=== PATIENT | female | born 1950 | race African-American/Black ===

== ENCOUNTER 2019-06-26 16:54 | Inpatient (IN) ==
[2019-06-26] MEDS ORDERED: DUONEB (A & A) INH ONE (18:39)
[2019-06-26] MEDS ORDERED: SOLU-MEDROL IV ONE (18:39)
[2019-06-26 19:38] LABS: BASO# 0.03 X1000 (0.0-0.2); BASO% 0.5 % (0.0-0.8); EOS# 0.12 X1000 (0.0-0.7); EOS% 2.2 % (0.0-10.0); HEMATOCRIT 38.1 % (37.0-47.0); HEMOGLOBIN 12.1 g/dL (12.0-16.0); IMM GRAN# 0.02 X1000 (0.0-0.04); IMM GRAN% 0.4 % (0.0-0.5); LYMPH# 1.37 X1000 (1.2-3.4); LYMPH% 24.8 % (20.5-51.1); MCH 23.5 PG (27-31); MCHC 31.8 g/dL (33-37); MONO# 0.48 X1000 (0.11-0.59); MONO% 8.7 % (1.7-9.3); MPV 9.6 FL (7.4-10.4); NEUT% 63.4 % (42.2-75.2); PLT 265 X1000 (130-400); RBC 5.15 XMIL (4.2-5.4); RDW 17.7 % (11.5-14.5); WBC 5.52 X1000 (4.8-10.8)
[2019-06-26] MEDS ORDERED: ALBUTEROL NEB INH ONE (20:01)
[2019-06-26] MEDS ORDERED: CARDIZEM IV ONE ×2 (20:03→22:18)
[2019-06-26 20:09] LABS: ALB/GLOB RATIO 0.8; ALBUMIN 3.4 g/dL (3.5-5.0); CALCIUM 10.1 mg/dL (8.8-10.2); CREATININE 1.5 mg/dL (0.5-0.9); POTASSIUM 4.8 mmol/L (3.5-5.1); TOTAL BILIRUBIN 0.59 mg/dL (0.20-1.00); TOTAL PROTEIN 7.6 g/dL (6.3-8.3)
[2019-06-26] MEDS ORDERED: LASIX IV ONE ×2 (21:21→22:18)
[2019-06-26] MEDS ORDERED: BENADRYL IV ONE (22:51)
[2019-06-26] MEDS ORDERED: LANTUS INSULIN SUBQ ONE (23:28)
[2019-06-26] MEDS ORDERED: ALDACTONE PO ONE (23:28)
[2019-06-26] MEDS ORDERED: TYLENOL PO PRN (23:28)
[2019-06-26] MEDS ORDERED: ZOFRAN IV PRN (23:28)
[2019-06-26] MEDS ORDERED: LASIX 100 MG in NS 90 ML IV SCH (23:30)
[2019-06-26] MEDS ORDERED: NITROGLYCERIN TOP SCH (23:30)
--- NOTE | 2019-06-26 23:42 | EKG Report ---
Test Performed on : 06/26/2019 5:00:07 PM Test Reason : SOB Blood Pressure : / mmHG Vent. Rate : 108 BPM Atrial Rate : 108 BPM P-R Int : 144 ms QRS Dur : 086 ms QT Int : 336 ms P-R-T Axes : 044 023 102 degrees QTc Int : 450 ms Sinus tachycardia. Nonspecific T wave abnormality Abnormal ECG When compared with ECG of 29-SEP-2018 00:15, premature ventricular complexes. are no longer present Nonspecific T wave abnormality has replaced inverted T waves in Lateral leads Confirmed by Yuli PONCE, [place] ([id number]) on 06/27/2019 8:19:14 AM
[2019-06-26] MEDS: DUONEB (A & A) INH SCH (23:50)
--- NOTE | 2019-06-27 01:08 | HISTORY AND PHYSICAL ---
REASON FOR ADMISSION: Two-day history of shortness of breath. HISTORY OF PRESENT ILLNESS: Ms. Reina Perez is a 68-year-old, woman with past medical history of type 2 diabetes, allergic rhinitis, prior DVT and PE, status post IVC filter, on chronic anticoagulation. Prior right breast cancer, status post lumpectomy, hypertension, hyperlipidemia, and chronic venous insufficiency with diabetic neuropathy. She comes in today complaining of sudden shortness of breath for the last 2 days, which was preceded by 2 days of mild, but slowly worsening dyspnea. States that for the last 2 days, she is unable to lay flat on her back and has been waking up at night gasping for breath intermittently. Also, admits to having chronic lower extremity leg swelling, which is worse at the end of the day, but gets better during the mornings. No facial swelling. Admits to having an occasional dry cough. Came today because her breathing had gotten so bad at rest and noticed that she was having palpitations. She denies any chest pain. No extremity redness or pain. No fever or chills. REVIEW OF SYSTEMS: The patient has occasional diarrhea from metformin, but no bleeding from any orifice. No genitourinary complaints. During the course of her treatment with Cardizem in the ER, she developed a pruritic rash at the site of injection, which has improved with administration of Benadryl. Otherwise, review of systems, 12 system review was done, positive findings per HPI. No antecedent history of upper respiratory symptoms or use of herbal remedies, although history of compliance issues with her medications. ALLERGIES: Reglan, and now Cardizem. HOME MEDICATIONS: 1. Exenatide weekly injections. 2. Eliquis 5 mg b.i.d. 3. Metformin 850 mg t.i.d. 4. Lispro 50 units as needed. 5. Magnesium 20 mg daily. 6. Potassium chloride 10 mEq daily. 7. Toprol-XL 100 mg daily. 8. Atorvastatin 20 mg daily. 9. Norvasc 10 mg daily. SOCIAL HISTORY: . Does not smoke, drink, or use drugs. FAMILY HISTORY: Dad of stomach cancer. Mom had a heart attack and of a CVA. Other history of bone cancer, pancreatic cancer in first-degree relatives. SURGICAL HISTORY: IVC filter placement and a right hemicolectomy for a tubulovillous adenoma in 2016, hysterectomy, cholecystectomy, and tubal ligation, other surgeries. LAB WORK: Chest film is a poorly penetrated film, but does show increased vascular markings and possible small bilateral pleural effusions. The patient did not take a good deep inspiratory effort, thus limiting the quality of this film. White count 5000, hemoglobin nd hematocrit 12 and 38, MCV 70, RDW 17, platelet count 265,000. BUN is 17, creatinine 1.5, glucose 105. Troponin 0.028. ProBNP is 1800. D-dimer 1.37. Lactate 1.9. EKG not available for review. PHYSICAL EXAMINATION: VITAL SIGNS: Blood pressure is 180/112, heart rate is 106, respiratory rate 20, temperature is 98.4. She is 93% on 2 L nasal cannula. GENERAL: She is a pleasant, morbidly obese, woman in mild respiratory distress, using mild accessory muscles. She is alert and oriented to person, place, and time. HEENT: Head is normocephalic, atraumatic. Eyes: KYLER, EOMI. Anicteric are not pale. ENT: Oropharynx exam is grossly. No sinus cyanosis noted. NECK: Short and thick with mild hepatojugular reflux. No JVD visualized. No bruit or thyromegaly visualized. CHEST: Bibasilar crepitations heard. A few scattered wheezes. CARDIOVASCULAR: First and second heart sounds heard. No gallops, murmurs, rubs. Rhythm regular. ABDOMEN: Protuberant, soft with no focal areas of tenderness. No mass or organomegaly could be appreciated due to the patient's abdominal girth. Bowel sounds normal. RECTAL: Deferred at this time. EXTREMITIES: The patient has embolic stockings on, but despite I could feel 2+ pitting edema. Her distal pulse volumes in the upper extremities are 2+, regular, symmetrical. No clubbing or peripheral cyanosis noted. NEUROLOGICAL: No gross focal deficits. No tremors. SKIN: There is an area of urticaria in the left antecubital area where injections were given, it is mildly hyperemic and appears, according to the patient to be receding in size. MUSCULOSKELETAL: Exam is grossly normal. ASSESSMENT: 1. Acute congestive heart failure? type. 2. Hypertensive heart disease with heart failure. 3. Type 2 diabetes with neuropathy. 4. Hyperlipidemia. 5. History of deep venous thrombosis and pulmonary embolism. 6. Morbid obesity. 7. Chronic kidney disease stage 3. PLAN: The patient will undergo aggressive diuresis. She was given IV boluses in the ER. We will continue with Lasix drip over the next 36 hours. Repeat chest film in 24 hours from now to document improvement. Echocardiogram will be ordered. Cardiology will be consulted. Also, we will consult sleep specialist for sleep evaluation, as this patient is at risk for sleep apnea, which in turn can cause all the other problems downstream, i.e., uncontrolled hypertension and CHF. The patient does have some degree of microcytic anemia. Iron studies should be considered. Regarding the patient's type 2 diabetes, the patient will be on Lantus and sliding scale in the interim. Other supportive measures will include aggressive blood pressure control. I have started her on Aldactone pending echocardiogram. This will help her blood pressure and decreased potassium losses, and if the patient has systolic heart failure this will be part of her regimen. Nebulizer treatments also be instituted for symptomatic relief. The patient is already on Eliquis, and according to Wells criteria, her risk for PE is on the lower side since there is an alternative diagnosis for the patient's shortness of breath. However, if the patient continues to have symptoms despite optimal diuresis, CTA can be ordered, although I doubt this is the etiology of her symptoms. Her clinical picture is more consistent with heart failure, and the patient is on optimal doses of Eliquis and has an IVC filter, although the latter can be a source of future PEs and DVTs. cc: MD Mateo Saab MD [facility]
[2019-06-27 01:20] LABS: CREATININE 1.5 mg/dL (0.5-0.9); POTASSIUM 4.5 mmol/L (3.5-5.1)
[2019-06-27] MEDS: DUONEB (A & A) INH SCH ×4 (03:45→22:25)
[2019-06-27] MEDS ORDERED: HUMALOG SUBQ SCH (07:00)
--- NOTE | 2019-06-27 07:38 | Diag Imaging Result Doc PS360 ---
CHEST-1 VIEW - 06/26/2019 INDICATION: sob COMPARISON: 09/09/2017 FINDINGS: There is cardiomegaly. There is severe worsening pulmonary vascular congestion. There are some patchy central infiltrates bilaterally most likely pulmonary edema. No large pleural effusion. IMPRESSION: Congestive heart failure. Electronically signed by Henry Winston 06/27/2019 7:35 AM
[2019-06-27] MEDS ORDERED: NITROGLYCERIN TOP SCH (08:15)
[2019-06-27] MEDS: HUMALOG SUBQ SCH ×4 (08:26→20:41)
[2019-06-27] MEDS ORDERED: LASIX 100 MG in NS 90 ML IV SCH (08:30)
[2019-06-27] MEDS ORDERED: LASIX IV ONE (08:32)
[2019-06-27] MEDS ORDERED: TOPROL XL PO SCH (09:00)
[2019-06-27] MEDS ORDERED: NORVASC PO SCH (09:00)
[2019-06-27] MEDS ORDERED: ALDACTONE PO SCH (09:00)
[2019-06-27] MEDS ORDERED: LIPITOR PO SCH (09:00)
[2019-06-27] MEDS ORDERED: LANTUS INSULIN SUBQ SCH (09:00)
[2019-06-27] MEDS ORDERED: MAGNESIUM PO SCH (09:00)
[2019-06-27] MEDS ORDERED: KLOR-CON PO SCH (09:00)
[2019-06-27] MEDS ORDERED: ELIQUIS PO SCH (09:00)
[2019-06-27] MEDS: NORVASC PO SCH (09:28)
[2019-06-27] MEDS: LASIX IV SCH (09:28)
[2019-06-27] MEDS: TOPROL XL PO SCH (09:28)
[2019-06-27] MEDS: KLOR-CON PO SCH (09:28)
[2019-06-27] MEDS: ELIQUIS PO SCH ×2 (09:28→21:57)
[2019-06-27 09:37] LABS: HEMATOCRIT 35.5 % (37.0-47.0); HEMOGLOBIN 11.1 g/dL (12.0-16.0); IMM GRAN# 0.03 X1000 (0.0-0.04); IMM GRAN% 0.5 % (0.0-0.5); LYMPH# 1.02 X1000 (1.2-3.4); LYMPH% 15.4 % (20.5-51.1); MCH 23.2 PG (27-31); MCHC 31.3 g/dL (33-37); MCV 74.3 FL (81-99); MONO# 0.27 X1000 (0.11-0.59); MONO% 4.1 % (1.7-9.3); MPV 10.2 FL (7.4-10.4); PLT 283 X1000 (130-400); RBC 4.78 XMIL (4.2-5.4); RDW 17.5 % (11.5-14.5); WBC 6.62 X1000 (4.8-10.8)
[2019-06-27] MEDS ORDERED: NEURONTIN PO SCH (10:15)
[2019-06-27] MEDS: GLUCOPHAGE PO SCH ×3 (11:04→17:17)
[2019-06-27] MEDS ORDERED: MAGNESIUM SULFATE 2 GM/S.W.I. 2 GM/50 ML IVPB IV ONE (12:35)
--- NOTE | 2019-06-27 15:40 | ECHO REPORT ---
ORDER DATE: 06/26/2019 INTERPRETING PHYSICIAN: Dr. Derick Carr ECHOCARDIOGRAPHIC MEASUREMENTS: 1. Interventricular septum: 1.6 cm. 2. Left ventricular posterior wall: 1.6 cm. 3. Diastolic diameter: 5.1 cm. 4. Left atrium: 4.6 cm. 5. Aorta: 2.9 cm. SUMMARY OF THE 2-DIMENSIONAL IMAGIN. Aortic valve leaflets were trileaflet. 2. Pulmonic valve was normal. 3. There is trace pulmonary regurgitation. 4. There is left atrial enlargement. 5. Mitral valve was normal. 6. Tricuspid valve was normal. 7. There is mild mitral regurgitation. 8. Peak velocity across the tricuspid valve was 2.9 meters per second. 9. Pulmonary artery systolic pressure 44 mmHg. 10. There is mild tricuspid regurgitation. 11. Peak velocity across the aortic valve less than 2 meters per second. 12. By Doppler studies, there is no aortic stenosis or regurgitation. 13. Normal left ventricular cavity size. 14. Concentric left ventricular hypertrophy. 15. Estimated ejection fraction of 45%. 16. There is mild global hypokinesis. 17. There is a grade 2 diastolic dysfunction. 18. There is no pericardial effusion or obvious intracardiac mass or thrombus seen. cc: MD Rick Chowdhury MD Jagan Reddy, MD
[2019-06-27] MEDS: NEURONTIN PO SCH (17:29)
--- NOTE | 2019-06-27 18:32 | Diag Imaging Result Doc PS360 ---
CHEST-PORTABLE - 06/27/2019 INDICATION: CHF COMPARISON: 06/26/2019 FINDINGS: Stable cardiomegaly and pulmonary vascular congestion. Stable hazy central infiltrates consistent with mild pulmonary edema. No pleural effusions. IMPRESSION: No change from prior. Electronically signed by Henry Winston 06/27/2019 6:29 PM
--- NOTE | 2019-06-27 18:50 | CONSULTATION ---
DATE OF CONSULTATION: 06/27/2019 IMPRESSION: 1. Acute congestive heart failure. 2. Hypertensive cardiovascular disease. 3. Prior deep vein thrombosis and pulmonary embolus. Patient is status post inferior vena cava filter and continues on chronic anticoagulation. 4. Type 2 diabetes mellitus. 5. Obesity. 6. Obstructive sleep apnea. RECOMMENDATIONS: 1. Diurese with IV Lasix as you are doing. 2. Followup echocardiography. 3. Further recommendations to follow. HISTORY: This 68-year-old -[place] female with past history of obesity, hypertensive cardiovascular disease, type 2 diabetes mellitus and prior DVT/pulmonary embolus was admitted with progressive dyspnea and orthopnea over the last 72 hours. She is found to have evidence of congestive heart failure and has been diuresed. She reports feeling better. She relates starting to have orthopnea and some exertional shortness of breath about 72 hours ago. Yesterday evening her shortness of breath symptoms progressed prompting her to come to the hospital for evaluation after which she was admitted and diuresed. There has been no chest pain. She has longstanding hypertension for at least 15 years. She relates that her does most of the cooking and has tendency to add salt to the food. She has had some occasional nonproductive cough. She has chronic tendency for lower extremity edema more so in the distal left lower extremity. PAST MEDICAL HISTORY: 1. Obesity. 2. Hypertensive cardiovascular disease. 3. Type 2 diabetes mellitus. 4. Prior DVT and pulmonary embolus. Patient is status post IVC filter and is on chronic anticoagulation. 5. Hyperlipidemia. 6. Chronic venous insufficiency. 7. Diabetic neuropathy. 8. Previous right breast cancer. Patient is status post lumpectomy. 9. Obstructive sleep apnea. ALLERGIES: She is allergic or intolerant to Reglan and diltiazem. MEDICATIONS PRIOR TO ADMISSION: As listed. SOCIAL HISTORY: She is . She does not smoke or use alcohol. She previously worked as a registered nurse at [employer]. FAMILY HISTORY: Negative for premature coronary disease. There is a family history of stomach cancer and cerebrovascular accident. The patient's mother also had heart attack at older age. There is also family history of bone cancer and pancreatic cancer. SURGICAL HISTORY: Includes right hemicolectomy for tubulovillous adenoma, hysterectomy, cholecystectomy, tubal ligation, lumpectomy from left breast and IVC filter placement. REVIEW OF SYSTEMS: Pulmonary: Noncontributory beyond history of present illness. Gastrointestinal: Negative. Constitutional: Negative. Remainder review of systems negative/noncontributory beyond history of present illness with 14 total systems reviewed. PHYSICAL EXAMINATION: Reveals an obese older -[place] female in no distress on supplemental oxygen per nasal cannula.Vital signs: Blood pressure 146/96, heart rate 107, oxygen saturation 94% on nasal cannula oxygen at 2 L/minute. HEENT: Extraocular movements appear intact. Mucous membranes are moist. Neck: Supple without discernible elevation jugular venous pressure. There are no carotid bruits. Chest: Clear to auscultation. Cardiac Exam: Reveals a regular rate and rhythm without appreciable murmur or gallop. Abdomen: Soft. Bowel sounds are normal. Extremities: Demonstrate bilateral distal lower extremity edema with 3+ edema of distal left lower extremity and 1+ edema of distal right lower extremity. Chronic venous stasis changes are evident left greater than right. Neurologic: Reveals her to be alert and fully oriented. Speech is fluent. She moves all 4 extremities equally well. Skin: Warm, dry. Psychiatric: Reveals mood to be appropriate. DATA: A 12 lead EKG demonstrates sinus tachycardia and nonspecific T-wave abnormality. LABORATORY DATA: Includes a white blood cell count 6.62, hematocrit 35.5, hemoglobin 11.1, platelet count 283,000. Sodium 141, potassium 4.5, chloride 103, carbon dioxide 20, BUN 21, creatinine 1.5, glucose 252. Initial troponin T 0.028, followup troponin T 0.021. TSH 0.6. Albumin 3.4. cc: MD Mateo Santos MD
[2019-06-27] MEDS: LIPITOR PO SCH (21:57)
--- NOTE | 2019-06-27 22:23 | PROGRESS NOTE ---
DATE: 06/27/2019 SUBJECTIVE: A 68-year-old female who came in with shortness of breath. The patient is heavy set. 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 The patient was seen in my office on Thursday getting hypoglycemia. I did adjust the insulin basal dose from 80 units to 60 units per day. The patient using Bydureon BCise once a week. The patient is feeling better off the Lasix. Cardiology consult was obtained. PAST MEDICAL HISTORY: Reviewed. PAST SURGICAL HISTORY: Reviewed. MEDICINES: Reviewed. ALLERGIES: Reglan. PHYSICAL EXAMINATION: Vital signs: Temperature is 97.9 degrees, tachycardic. Vitals are stable, 92% nasal cannula. I's and O's negative -2 L. Weight is reported 297 pounds. HEENT: Within normal limits. Neck: Supple. Lungs: Bilateral air entry. Heart: Sounds are regular. Abdomen: Belly is soft, obese, nontender. Extremities: There is 1+ edema. Left leg is more than the right side. Neurological: No focal deficits. INVESTIGATIONS: CBC: White cell count 6.6, hematocrit 35, platelets 283,000. Sodium 140, potassium 4.5, chloride 103, BUN 21, creatinine 1.5, glucose 252, magnesium 1.4. ProBNP was high. Cardiac enzymes were negative. TSH is normal. Chest x-ray: Stable cardiomegaly with increased pulmonary vasculature consistent with congestive heart failure. EKG: Normal sinus. Nothing acute. Echocardiography: Findings are concentric LV hypertrophy. EF 45%. Mild global hypokinesis. Diastolic dysfunction. Enlargement of left atrial cavity. Mild pulmonary hypertension. ASSESSMENT AND PLAN: 1. Acute systolic heart failure. 2. Insulin-dependent diabetes, poorly controlled. 3. Prior deep vein thrombosis and pulmonary embolus in the left leg, status post inferior vena cava filter. 4. History of right breast cancer status post lumpectomy, diverticulosis, peripheral neuropathy, hypertension, history of right hemicolectomy due to tubulovillous adenoma. PLAN OF CARE: 1. Fluid restrictions, daily weights. IV Lasix really helping. 2. Reconcile home medications. 3. The patient probably needs a stress test after diuresis. 4. For diabetes the patient is on Bydureon BCise, Metformin, insulin pump. 5. History of deep vein thrombosis and pulmonary embolus. Continue on Eliquis 5 mg p.o. b.i.d. 6. Hyperlipidemia on Lipitor. 7. Appreciated Cardiology consult. LEVEL OF DOCUMENTATION: 35 minutes. cc: Mateo Cook MD
[2019-06-28] MEDS: DUONEB (A & A) INH SCH ×4 (03:43→22:25)
[2019-06-28] MEDS: HUMALOG SUBQ SCH ×4 (06:16→20:40)
[2019-06-28] MEDS: PROTONIX PO SCH (06:35)
[2019-06-28 06:40] LABS: HEMOGLOBIN A1C 7.2 % (4.8-6.0)
[2019-06-28 07:28] LABS: CALCIUM 9.8 mg/dL (8.8-10.2); CREATININE 1.7 mg/dL (0.5-0.9); MAGNESIUM 1.6 mg/dL (1.5-2.7); PHOSPHORUS 3.3 mg/dL (2.7-4.5); POTASSIUM 4.2 mmol/L (3.5-5.1)
[2019-06-28] MEDS: KLOR-CON PO SCH (08:13)
[2019-06-28] MEDS: GLUCOPHAGE PO SCH ×3 (08:13→16:11)
[2019-06-28] MEDS: TOPROL XL PO SCH (08:14)
[2019-06-28] MEDS: NEURONTIN PO SCH ×3 (08:14→16:11)
[2019-06-28] MEDS: NORVASC PO SCH (08:14)
[2019-06-28] MEDS: LASIX IV SCH (08:14)
[2019-06-28] MEDS: ELIQUIS PO SCH ×2 (08:14→20:22)
[2019-06-28] MEDS: ALDACTONE PO SCH (08:14)
[2019-06-28] MEDS ORDERED: LANTUS INSULIN SUBQ SCH (09:00)
[2019-06-28] MEDS ORDERED: LEXISCAN ONE (13:57)
--- NOTE | 2019-06-28 16:56 | Diag Imaging Result Document ---
PROCEDURE NAME: MYOCARDIAL PERF SCAN, STR/REST - 06/28/2019 SUMMARY/FINDINGS: The patient was administered 17.7 mCi of technetium-99m sestamibi, after which resting cardiac images were obtained. The patient was subsequently administered Lexiscan 0.4 mg intravenously, after which the heart rate went from 99 beats per minute to 114 beats per minute. The blood pressure went from 155/96 to 172/99. With Lexiscan, the patient denied chest discomfort. Following the administration of Lexiscan, the patient was administered 45.8 mCi of technetium 99-m sestamibi after which gated stress cardiac images were obtained. Baseline ECG demonstrates normal sinus rhythm, minimal voltage criteria for left hypertrophy, and nonspecific ST and T-wave abnormality. With Lexiscan baseline ST and T-wave abnormality did not change significantly. There was an occasional premature ventricular complex. SPECT images were reconstructed in the short, horizontal, and vertical long axis. Review of these images demonstrated moderate left ventricular enlargement. SPECT images demonstrate a small severe defect in the apex of the left ventricle on stress images which appears similar on resting images. There is also mildly diminished activity in the inferior wall on stress images which appears similar on resting images. No significant reversibility is evident. Gated images demonstrate a calculated left ejection fraction of 31% in a setting of global hypokinesis. CONCLUSIONS: 1. Adequate response to Lexiscan. 2. Clinically negative for chest pain. 3. Electrocardiographically baseline ST and T-wave abnormality did not change significantly with Lexiscan. 4. Lexiscan sestamibi images demonstrate small, fixed apical defect probably due to soft tissue attenuation. There is also mildly diminished activity in the inferior wall which is fixed, also more likely due to small due to soft tissue attenuation. There is no convincing scintigraphic evidence of inducible myocardial ischemia. Moderate left ventricular enlargement with global hypokinesis and calculated left ejection fraction of 31% demonstrated. cc: MD Mateo Santos MD
--- NOTE | 2019-06-28 20:15 | PROVIDER DOCUMENTATION ---
This chart was entered by Kimberly Montaño Scribe, acting as scribe for Felicitas Ramirez MD. HPI-Respiratory General - General Chief Complaint: Shortness of Breath Stated Complaint: SOB Time Seen by Provider: 06/26/19 18:35 Source: patient, family Allergies/Adverse Reactions: Patient Allergies Allergy/AdvReac Type Severity Reaction Status Date / Time metoclopramide HCl * AdvReac Mild psych Verified 09/09/17 11:41 [From Reglan] Home Medications: Home Medication List Medication Instructions Recorded Confirmed Last Taken Type Potassium Chloride 10 meq PO DAILY 04/12/12 06/26/19 08/13/15 History Apixaban [Eliquis] 5 mg PO BID 07/23/17 06/26/19 Unknown History Magnesium 20 mg PO DAILY 09/09/17 06/26/19 Unknown History Metoprolol Succinate [Toprol Xl] 100 mg PO DAILY 09/09/17 06/26/19 Unknown History ATORVAstatin [Lipitor] 20 mg PO DAILY #90 tab 09/11/17 06/26/19 Unknown Rx Amlodipine [Norvasc] 10 mg PO DAILY tablet 09/11/17 06/26/19 Unknown Rx Exenatide Microspheres [Bydureon 2 mg SUBQ DIRECTED 06/26/19 06/26/19 Unknown History Bcise] Insulin Lispro [Humalog] 15 units SUBQ DAILY 06/26/19 06/26/19 Unknown History Metformin [Glucophage] 1 tab PO TID 06/26/19 06/26/19 Unknown History Gabapentin 300 mg PO BID 06/27/19 06/27/19 06/26/19 09:00 History Pantoprazole Sodium 06/27/19 Unknown History - History of Present Illness-Resp Nature of Presenting Problem: Patient is a 68 y/o female presenting to the ED today c/o SOB. Patient reports onset of symptoms 2 days ago. Patient has a history of PE more than 2 years ago, was on warfarin which was later change to Eliquis after a CVA even 2years ago. Patient is followed by Dr. Cook and Dr. Scruggs. Patient denies all other signs/symptoms. Onset/Duration: reports: 2 days ago Timing: reports: still present Exposure: reports: unknown cause Cough Quality/Degree: reports: no cough Modifying Factors: improves with: nothing Associated Symptoms: reports: shortness of breath Similar Symptoms Previously?: No Recently seen or treated by another doctor?: No Review of Systems - Adult - REVIEW OF SYSTEMS - ADULT Constitutional: denies: chills, fever Eyes: reports: no symptoms reported Ears, Nose, Mouth & Throat: reports: no symptoms reported Cardiovascular: denies: chest pain Respiratory: reports: shortness of breath. denies: cough Gastrointestinal: reports: no symptoms reported Genitourinary: reports: no symptoms reported Musculoskeletal: reports: no symptoms reported Integumentary: reports: no symptoms reported Neurological: reports: no symptoms reported Psychiatric: reports: no symptoms reported Endocrine: reports: no symptoms reported Hematologic/Lymphatic: reports: no symptoms reported Allergic/Immunologic: reports: no symptoms reported Past History - Adult - PAST MEDICAL HISTORY-ADULT Review of Records: reports: Nursing Assessment Review, Medications Reviewed, Social history reviewed & non-contributory. Major Childhood Illnesses: reports: denies history Cardiovascular: reports: blood clots (PE), HTN, other (cardiomyopathy) Respiratory: reports: sleep apnea Gastrointestinal: reports: GERD Obstetrical/Gynecological: reports: other (R breast ca) Genitourinary: reports: other (renal insufficiency) Musculoskeletal: reports: denies history Neurological: reports: denies history Endocrine/Immune: reports: Diabetes, thyroid disorder Other Conditions: reports: denies history - PRIOR SURGERIES/PROCEDURES Surgical/Procedure History: reports: cholecystectomy, hysterectomy, bowel surgery, breast - IMMUNIZATION STATUS Childhood Immunizations: See Nurse Assessment Flu Vaccine: See Nurse Assessment - FAMILY HISTORY Family History: reviewed, not pertinent - SOCIAL HISTORY Smoking: denies Substance Use: none/never Alcohol Use Frequency: occasionally Physical Exam-General - PHYSICAL EXAM-ADULT Initial Vital Signs Reviewed: Yes - CONSTITUTIONAL General Appearance: alert, moderate distress - EYES Eyes: PERRL/EOMI - HEAD, EARS, NOSE, MOUTH & THROAT HENMT: normocephalic/atraumatic, moist mucous membranes - NECK Neck: full range of motion, supple - RESPIRATORY Respiratory: lungs clear, normal breath sounds, no accessory muscle use, respiratory distress - CARDIOVASCULAR Cardiovascular: regular rate, rhythm - GASTROINTESTINAL (ABDOMEN) Abdominal Exam: non tender, soft - MUSCULOSKELETAL Back Exam: normal inspection, no CVA tenderness, no vertebral tenderness Extremity: normal range of motion, normal gait, pedal edema - SKIN Integumentary: normal color, normal turgor, warm/dry - NEUROLOGIC Neurologic: grossly normal - PSYCHIATRIC Psych/Mental Status: normal mood/affect, normal thought content, normal thought process, oriented x 3 Progress - PLAN OF CARE/RESULTS Progress/Plan/Lab Results: Orders Category Date Time Status Admit - [facility] Routine AdmDCTranf 06/26/19 23:28 Active Activity - Up with Assistance ORDERED Care 06/26/19 23:28 Active Intake and Output-Strict ORDERED Care 06/26/19 23:28 Active Nursing- MD Consult Request ROUTINE Care 06/26/19 23:28 Completed Saline Loc NOW Care 06/26/19 18:36 Completed Vital Signs Order Q 4-HR ASSESS Care 06/26/19 23:28 Completed Z-Document. for Tele Applied ORDERED Care 06/26/19 23:28 Active Physician/Provider Consults Routine Cons 06/26/19 23:28 Ordered Diabetic Diet Diet 06/26/19 23:30 Active cxr [CHEST-1 VIEW] [RAD] Stat Exams 06/26/19 22:19 Completed BASIC METABOLIC PANEL [CHEM] Stat Lab 06/27/19 00:33 Completed CBC WITH DIFF [HEME] Routine Lab 06/27/19 08:55 Completed CBC WITH DIFF [HEME] Stat Lab 06/26/19 19:20 Completed CK PROFILE [SP CHEM] Stat Lab 06/26/19 19:20 Completed COMPREHENSIVE METABOLIC PANEL [CHEM] Stat Lab 06/26/19 19:20 Completed D-DIMER [COAG] Stat Lab 06/26/19 19:20 Completed LACTATE, PLASMA [CHEM] Stat Lab 06/26/19 19:20 Completed MAGNESIUM [CHEM] Routine Lab 06/27/19 08:55 Completed PRO B-NATRIURETIC PEPTIDE Stat Lab 06/26/19 19:20 Completed TROPONIN T Routine Lab 06/27/19 02:07 Completed TROPONIN T Stat Lab 06/26/19 19:20 Completed TSH Routine Lab 06/27/19 08:55 Completed 0.9% Sodium Chloride Inj [Ns] 90 ml Med 06/26/19 23:30 Discontinued Furosemide [Lasix] 100 mg IV 5 mg/hr ATORVAstatin [Lipitor] Med 06/27/19 09:00 Discontinued 20 mg PO DAILY Acetaminophen [Tylenol] Med 06/26/19 23:28 Discontinued 650 mg PO Q6H PRN PRN Albuterol 2.5MG/Ipratrop 0.5MG [Duoneb (A & A)] Med 06/26/19 18:39 Discontinued 3 ml INH NOW ONE Albuterol 2.5MG/Ipratrop 0.5MG [Duoneb (A & A)] Med 06/26/19 23:30 Discontinued 3 ml INH RTQ6H Albuterol [Albuterol Neb] Med 06/26/19 20:01 Discontinued 2.5 mg INH NOW ONE Amlodipine [Norvasc] Med 06/27/19 09:00 Discontinued 10 mg PO DAILY Apixaban [Eliquis] Med 06/27/19 09:00 Discontinued 5 mg PO BID Diltiazem [Cardizem] Med 06/26/19 20:03 Discontinued 10 mg IV NOW ONE Diltiazem [Cardizem] Med 06/26/19 22:18 Discontinued 20 mg IV NOW ONE Diphenhydramine [Benadryl] Med 06/26/19 22:51 Discontinued 50 mg IV NOW ONE Furosemide [Lasix] Med 06/26/19 21:21 Discontinued 40 mg IV NOW ONE Furosemide [Lasix] Med 06/26/19 22:18 Discontinued 40 mg IV NOW ONE Insulin Glargine [Lantus Insulin] Med 06/26/19 23:28 Discontinued 10 unit SUBQ NOW ONE Insulin Glargine [Lantus Insulin] Med 06/27/19 09:00 Discontinued 20 unit SUBQ DAILY Insulin Lispro [Humalog] Med 06/27/19 07:00 Discontinued See Protocol SUBQ 0700,1100,1600,2100 Magnesium Med 06/27/19 09:00 Discontinued 20 mg PO DAILY Methylprednisolone Sod Succ [Solu-Medrol] Med 06/26/19 18:39 Discontinued 125 mg IV NOW ONE Metoprolol Succinate E.r. [Toprol Xl] Med 06/27/19 09:00 Discontinued 100 mg PO DAILY Nitroglycerin Med 06/26/19 23:30 Discontinued 1 inch TOP Q6H Ondansetron [Zofran] Med 06/26/19 23:28 Discontinued 4 mg IV Q4H PRN PRN Potassium Chloride E.r. [Klor-Con] Med 06/27/19 09:00 Discontinued 10 meq PO DAILY Spironolactone [Aldactone] Med 06/27/19 09:00 Discontinued 25 mg PO DAILY Spironolactone [Aldactone] Med 06/26/19 23:28 Discontinued 25 mg PO NOW ONE Aerosol Treatments Routine Oth 06/26/19 18:39 Completed Aerosol Treatments Routine Oth 06/26/19 20:02 Completed Aerosol Treatments Routine Oth 06/26/19 23:28 Completed Aerosol Treatments Stat Oth 06/26/19 18:39 Completed Aerosol Treatments Stat Oth 06/26/19 20:02 Completed Aerosol Treatments Stat Oth 06/26/19 23:28 Completed Pulse Oximetry Stat Oth 06/26/19 18:36 Completed Telemetry [OM.EQ] Routine Oth 06/26/19 23:28 Active EKG [EKG] Stat Ther 06/26/19 18:36 Completed Echo Spec/Color Doppler Routine Ther 06/26/19 23:28 Completed Transfer/Admit Order [TRANSFER] Routine Transfer 06/26/19 23:20 Completed Transfer/Admit Order [TRANSFER] Routine Transfer 06/26/19 23:34 Completed Result Diagrams: 06/27/19 08:55 06/28/19 06:08 - REASSESSMENT Reassessment #1 Time Reassessed: 10:50 Status: worsening (Patient noted to have elevated pro bnp and tarchycardic, was given lasix and 2nd cardizen, developed wheels on the left foream shortly after. Given benadyl. Has positive D- dimer. Radilogist will not do CTA due to low egfr. Patient on eliquis.) - EKG 1 Time of EKG reading by physician:: 17:00 EKG Read and Signed by:: Felicitas Ramirez EKG Interpretation (*Must complete 3 of following elements*): Normal Rate: 108 Rhythm: Sinus tachycardia ST Wave: non-specific ST changes - CONSULTS/PCP/HOSPITALIST Notification #1 *Consult/PCP/Hospitalist*: dr Mancia Time Discussed: 11:02 Consult Disposition: Admit (accepted admission) Departure - Departure Date of Disposition Decision: 06/26/19 Time of Disposition Decision: 22:53 DIAGNOSIS: Elevated blood-pressure reading, without diagnosis of hypertension CHF exacerbation Qualifiers: Heart failure type: unspecified Qualified Code(s): I50.9 - Heart failure, unspecified Allergic reaction caused by a drug Qualifiers: Encounter type: initial encounter Qualified Code(s): T78.40XA - Allergy, u nspecified, initial encounter Disposition: ADMITTED INPATIENT 09 Certified Medical Emergency: Emergent Condition: Fair - Critical Care Note This patient required my direct & personal management of CC.: No Attestation - Physician/ MARIANELA Attestation Patient care was provided by Advanced Practice Provider:: No The physician spent face to face time with patient:: Yes Advanced Practice Provider documentation review:: Supervising physician onsite and consulted in the evaluation and care of this patient. The physician did have a face to face encounter with the patient. This chart was documented by the indicated scribe, (Kimberly Montaño, Marge) an d accurately reflects the services I performed and decisions made by me, Felicitas Ramirez MD, as attested by the provider's signature.
[2019-06-28] MEDS: LIPITOR PO SCH (20:22)
[2019-06-28] MEDS: COREG PO SCH (20:22)
--- NOTE | 2019-06-28 21:08 | PROGRESS NOTE ---
DATE: 06/28/2019 SUBJECTIVE: Patient denies shortness of breath or chest discomfort on room air. She is able to lie flat without shortness of breath. OBJECTIVE: Blood pressure 139/106, heart rate 106 and regular with ECG monitor showing sinus rhythm. Oxygen saturation 95% on room air. There is no significant jugular venous distention.Chest: Clear to auscultation. Cardiac Exam: Reveals a regular rate and rhythm without appreciable murmur or gallop. There is trace pedal edema. LABORATORY DATA: Includes sodium 143, potassium 4.2, chloride 102, carbon dioxide 24, BUN 28, creatinine 1.7. Glucose 143. Echocardiography reports left ventricular ejection fraction approximately 45% with left hypertrophy. Lexiscan sestamibi study demonstrates no convincing scintigraphic evidence of inducible myocardial ischemia. Calculated left ejection fraction 31%. IMPRESSION: 1. Acute congestive heart failure now improved with diuresis. 2. Hypertensive cardiovascular disease and renal disease. 3. Cardiomyopathy. I suspect her cardiomyopathy is more likely related to long-standing hypertension. 4. Chronic kidney disease. 5. Obesity. 6. Obstructive sleep apnea. RECOMMENDATIONS: 1. Discontinue IV Lasix and transition to oral Lasix. 2. Discontinue metoprolol and switch to carvedilol. 3. Nephrology consultation. 4. Anticipate patient to be sufficiently improved to be discharged in next 24 hours. cc: MD Mateo aSntos MD
--- NOTE | 2019-06-29 01:07 | PROGRESS NOTE ---
DATE: 06/28/2019 SUBJECTIVE: The patient is better. On echocardiography, EF 45%. OBJECTIVE: On examination, temperature is 97 degrees, pulse 106. Blood pressure is stable. On 2 L nasal cannula. Morbidly obese. Not able to see JVD. Chest is bilateral. Distant heart sounds. Belly is soft, nontender. Decreased edema. LABORATORY DATA: Sodium 143, potassium 4.2, BUN 28, creatinine 1.7, glucose 152. A1c 7.2. ASSESSMENT AND PLAN: 1. Shortness of breath due to congestive heart failure, due to hypertensive heart disease, rule out ischemic heart disease in light of risk factors. Ejection fraction 45%. Schedule for a stress test. 2. Azotemia due to overdiuresis. 3. Chronic deep venous thrombosis, on Eliquis 5 mg p.o. b.i.d. 4. Type 2 diabetes, insulin-dependent, on insulin pump as well as Bydureon BCise. 5. Hyperlipidemia, on Lipitor 20 daily. 6. Hypertension, controlled on Norvasc 10 mg daily. Coreg, started on 25 p.o. b.i.d., and we will hold the metformin due to creatinine is 1.7. 7. The patient was scheduled for a stress test. We will follow up on the stress test. Hold the insulin pump in the morning since he is NPO. Level of documentation 25 minutes. cc: Mateo Cook MD
[2019-06-29] MEDS: DUONEB (A & A) INH SCH ×3 (04:38→16:25)
[2019-06-29] MEDS: HUMALOG SUBQ SCH ×3 (06:21→16:05)
[2019-06-29] MEDS: PROTONIX PO SCH (06:22)
[2019-06-29] MEDS: NEURONTIN PO SCH ×3 (08:36→17:00)
[2019-06-29] MEDS: KLOR-CON PO SCH (08:36)
[2019-06-29] MEDS: COREG PO SCH (08:36)
[2019-06-29] MEDS: ELIQUIS PO SCH (08:36)
[2019-06-29] MEDS: NORVASC PO SCH (08:36)
[2019-06-29] MEDS: ALDACTONE PO SCH (08:36)
[2019-06-29 08:42] LABS: URINE SOURCE VOIDED
[2019-06-29 08:47] LABS: UR EPITHELIAL CELLS <10 /HPF (<10); URINE BACTERIA 4+ /HPF; URINE RBC <10 /HPF (<10); URINE WBC TNTC /HPF (<10)
[2019-06-29 09:13] LABS: HEMATOCRIT 36.9 % (37.0-47.0); HEMOGLOBIN 11.5 g/dL (12.0-16.0); MCH 23.4 PG (27-31); MCHC 31.2 g/dL (33-37); MPV 9.5 FL (7.4-10.4); RBC 4.92 XMIL (4.2-5.4); RDW 17.6 % (11.5-14.5); WBC 4.44 X1000 (4.8-10.8)
[2019-06-29 09:26] LABS: BILIRUBIN URINE NEGATIVE (NEGATIVE); BLOOD URINE NEGATIVE (NEGATIVE); COLOR YELLOW; GLUCOSE URINE NEGATIVE (NEGATIVE); KETONE URINE NEGATIVE (NEGATIVE); LEUKOCYTES URINE LARGE (NEGATIVE); NITRITE URINE NEGATIVE (NEGATIVE); PH URINE 6.5; PROTEIN URINE TRACE mg/dL (NEGATIVE); SP GRAVITY URINE 1.015; TURBIDITY URINE HAZY (CLEAR); UROBILINOGEN URINE NORMAL (NORMAL)
[2019-06-29 10:13] LABS: ALBUMIN 3.8 g/dL (3.5-5.0); CALCIUM 10.2 mg/dL (8.8-10.2); CREATININE 1.5 mg/dL (0.5-0.9); PHOSPHORUS 2.7 mg/dL (2.7-4.5); POTASSIUM 4.6 mmol/L (3.5-5.1)
--- NOTE | 2019-06-29 12:39 | Diag Imaging Result Doc PS360 ---
EXAM: CHEST-1 VIEW 06/29/2019 HISTORY: reassess pulmonary edema. TECHNIQUE: AP portable at 1219 COMMENT: There is cardiomegaly. The lungs are clear. Compared to 06/27/2019 there has been no significant change. IMPRESSION: Cardiomegaly. Electronically signed by Glen Torres 06/29/2019 12:37 PM
[2019-06-29] MEDS: ROBITUSSIN-DM PO SCH ×2 (12:59→17:00)
--- NOTE | 2019-06-29 13:32 | PROVIDER PROGRESS NOTE ---
Progress Note Chief complaint: shortness of breath HPI: Mrs. Perez is a 68-year-old -[place] female with a past medical history of diabetes mellitus type two, hypertension, and TIA. She started having shortness of breath on Thursday. It progressively got worse over the weekend and by Thursday she could not walk. She denies any n/v, fever, chills, associated cough, chest pain, or change in urine frequency. She denies any hematuria or bloody stools. At this point, she came into the emergency department where she was found to be in a hypertensive emergency and her chest X-ray showed pulmonary vascular congestion. She was placed on Cardizem, but it caused a topical allergic reaction and was discontinued. She has been receiving high doses of la six and pulmonary toilet. Her presenting Creatinine was 1.5. Today it is 1.7. Past medical history: Diabetes Mellitus type2, hypertension, TIA, GERD, diabetic neuropathy, right pulmonary embolism, right DVT Past surgical history: IVC filter placement, right colectomy, hysterectomy, cholecystectomy, right lumpectomy, and tubal ligation. Social history: , Lives at home with . Denies alcohol, tobacco, and illicit drugs. Family history: Father positive for cancer, mother positive for coronary artery disease and CVA Allergies: Reglan and cardizem Home medications: Amlodipine, Eliquis, Lipitor, gabapentin, Humalog, magnesium, metFormin, metoprolol succinate, pantoprazole sodium, potassium chloride. Review of systems: no other pertinent positives besides what is listed in the a jacinto HPI Labs: Wbc 4.44, hemoglobin 11.5, hematocrit 36.9, platelet count 284. Imaging: echocardiogram ejection fraction 45%. Chest x-ray impression stable cardiomegaly and pulmonary vascular congestion. Stable hazy central infiltrates consistent with pulmonary Edema. Myocardial perfusion scan conclusions small, fixed apical defect probably due to soft tissue attenuation. Theres also diminished activity in the interior wall which is fixed. Moderate left ventricular enlargement with global hypokinesis and calculated left ejection fraction of 31%.. Physical exam: temperature 98.2, pulse 100, respirations 20, blood pressure 134/80, 02 sat 90% on 2 L nasal cannula. General: obese -[place] female lying in bed in no acute distress. HEENT: normocephalic, atraumatic, mucous membranes moist, pupils equal and reactive. Skin: warm and dry Neck: supple, no jvd Cardiovascular:s1s2, regular rate and rhythm. No murmur or gallop. Respiratory: clear and equal air entry anteriorly Abdomen: obese, soft, nontender, nondistended. Bowel sounds present : non inspected, amanda in place. Extremities: No clubbing or cyanosis. 2+ pitting edema to left lower extremity. Trace edema to right lower extremity. Neurologic: Alert and oriented to person, place, and time Assessment and Plan: Acute on chronic kidney disease. Her baseline is around 1.5. Likely prerenal from congestive heart failure and diuretic therapy. Urine studies have been ordered. Renal ultrasound ordered. Amanda in place. Fluid volume. Expanded. She is on a large dose of gabapentin and is receiving norvasc. Both of these could contribute to fluid retention. We will repeat chest X-ray. Blood pressure. Above target. Anemia. Stable. Electrolytes and acid base balance. Stable. Nutrition. Stable. Medication review. No changes except as above.
[2019-06-29 13:49] LABS: UR CREAT RANDOM 112.2 mg/dL (11-20)
--- NOTE | 2019-06-29 14:14 | Diag Imaging Result Doc PS360 ---
EXAM: US RENAL 2 (RETROPER) COMPLETE INDICATION: decreased renal function TECHNIQUE: COMPARISON: None. FINDINGS: There is a 1 cm shadowing stone near the lower pole of the left kidney. There is no hydronephrosis. There is a 2 cm low echotexture focus at the lower pole of the left kidney that is difficult to visualized due to body habitus but probably represents a small cyst. The right kidney measures 10.9 cm and the left kidney measures 10.1 cm in the greatest longitudinal axes. The right and left renal cortices measure up to 2 cm in thickness. The urinary bladder is partially distended and is grossly unremarkable, otherwise. The transportation refrigeration technician reported seeing no ureteral urine jets in the urinary bladder after watching for three minutes. IMPRESSION: 1.1 cm shadowing stone in the left kidney but no evidence of hydronephrosis. 2.2 cm low echotexture focus at the lower pole of the left kidney that is poorly visualized due to body habitus but probably represents a small cyst. 3.The transportation refrigeration technician reported no urinary bladder urine jets after three minutes of watching. Please correlate clinically. Electronically signed by Remi Ceja 06/29/2019 2:12 PM
[2019-06-29 15:40] VITALS: BP 136/86
[2019-06-29] MEDS ORDERED: PNEUMOVAX 23 IM ONE (15:48)
--- NOTE | 2019-07-03 22:05 | DISCHARGE SUMMARY ---
ADMISSION DATE: 06/26/2019 DISCHARGE DATE: 06/29/2019 DISCHARGING DIAGNOSIS: Acute systolic congestive heart failure due to hypertension, cardiomyopathy. SECONDARY DIAGNOSES: 1. Morbid obesity. 2. Type 2 diabetes on insulin dependent. 3. Chronic kidney disease, creatinine 1.5, stage 3. 4. Allergic rhinitis, right breast cancer, colonic diverticulosis, peripheral neuropathy, metabolic syndrome. 5. Hypertension. 6. Acid reflux disease. 7. Osteoarthritis. 8. Lumbar spondylosis . 9. Stasis dermatitis in the left leg due to chronic deep vein thrombosis with pulmonary embolism. PREVIOUS PROCEDURES: IVC filter and a history of right hemicolectomy for tubulovillous adenoma. CONSULTS: 1. Migue Kelly . 2. Dr. Huerta. CARDIOLOGY PROCEDURES: 1. EKG normal sinus, slightly tachycardic, nothing acute. 2. Myocardial perfusion scan reported Lexiscan ejection fraction reported 31%. Moderate left ventricular enlargement with global hypokinesis. 3. Echocardiography report EF 45%, concentric left ventricular hypertrophy, diastolic dysfunction, global hypokinesis noted. Renal ultrasound 1.1 cm shadowing stone in the left kidney. No hydronephrosis. A small cyst in the left kidney 2.2 cm. Chest x-ray cardiomegaly. BRIEF HISTORY: Please see the H and P that was done by hospitalist. In brief she is a 68-year- old female with above problems came in with shortness of breath, PND, orthopnea, swelling of feet. The patient's symptoms are much improved with IV diuresis. Followup EKG, cardiac enzymes were negative. Nevertheless, patient had decreased LV function. Dr. Cheema feels that she most likely hypertension, cardiomyopathy. There is no inducible ischemia. Optimize the treatment by controlling the blood pressure. The patient started losing weight. The sugars are dropping after taking the Bydureon bicise once a week. A1c 7.2. She developed mild worsening of kidney function tests after diuresis. LABS: CBC. White cell count 4.4, hematocrit 36.9, platelets 284,000. Sodium 141, potassium 4.6, chloride 101, BUN 24, creatinine 1.5, glucose 189, A1c 7.2. ProBNP 1835, albumin 3.8. Urinalysis is clear. At the time of discharge the discharging weight 297 pounds. She lost about 13 pounds of fluid. INSTRUCTIONS: 1. Pneumococcal vaccine 23 was given on 06/29/2019. 2. Weight is 297 pounds. Low-salt diet, fluid restrictions. Lasix 40 mg daily, losartan 50 daily, Aldactone 25 daily, gabapentin 300 p.o. b.i.d., Protonix 40 daily, Bydureon bicise 2 mg once a week, metformin 850 t.i.d. as long as the creatinine is below 1.5, insulin pump adjust the basal rate total about 60 units per day, Lipitor 20 mg daily, amlodipine 10 daily, metoprolol 100 daily, magnesium 20 mg daily, Eliquis 5 mg p.o. b.i.d., potassium 10 mEq daily. Follow up in my office in 1 week. Check the SMA [address] Cheema is not inclining to do any catheterization at this time unless she has any symptoms of chest pains. Follow up with Transfer Operator as well as Dr. Cheema in next week. cc: Migue Cheema MD [facility]
== END 2019-06-29 18:30 | disposition home or self-care (01) | DRG 291 ==
LOC: ED 16:54 → EDIPHOLD 23:49 → SUATTDRO 23:49 → ICU 06-27 05:39
PROVIDERS: ADMIT Internal Medicine; ATTEND Internal Medicine